=== PATIENT | female | born 1990 | race Caucasian/White ===

== ENCOUNTER 2016-09-19 10:33 | Emergency (ER) | payer MEDICAID ==
[2016-09-19] MEDS ORDERED: ALBUTEROL SULFATE 0.083% NEB 2.5 MG/3 ML AMPUL NEB ONE (10:54)
--- NOTE | 2016-09-19 10:55 | ER Document Report ---
ED Medical Screen (RME) - General Stated Complaint: COUGH Notes: Patient complains of cough and congestion for 1 week. Fever for 1 day, which was last Sunday. Patient is 14 weeks , denies abdominal pain, no vaginal bleeding. Patient has history of exercise-induced asthma.. I have greeted and performed a rapid initial assessment of this patient. A comprehensive ED assessment and evaluation of the patient, analysis of test results and completion of the medical decision making process will be conducted by additional ED providers. TRAVEL OUTSIDE OF THE [place] IN LAST 30 DAYS: No - Related Data Allergies/Adverse Reactions: amoxicillin [Amoxicillin] Allergy (Unknown, Verified 09/19/16 10:51) Hives Penicillins Allergy (Verified 09/19/16 10:51) Hives Past Medical History - Past Medical History Cardiac Medical History: Denies: Hx Coronary Artery Disease, Hx Heart Attack, Hx Hypertension Pulmonary Medical History: Reports: Hx Asthma Denies: Hx Bronchitis, Hx COPD, Hx Pneumonia Neurological Medical History: Denies: Hx Cerebrovascular Accident, Hx Seizures Renal/ Medical History: Reports: Hx Kidney Stones GI Medical History: Reports: Hx Gastroesophageal Reflux Disease Musculoskeltal Medical History: Denies Hx Arthritis, Reports Hx Musculoskeletal Deformity Psychiatric Medical History: Reports: Hx Attention Deficit Hyperactivity Disorder, Hx Bipolar Disorder, Hx Depression Past Surgical History: Reports: Hx Adenoidectomy, Hx Gynecologic Surgery, Hx Oral Surgery - wisdom teeth, Hx Tonsillectomy. Denies: Hx Hysterectomy, Hx Pacemaker - Immunizations Immunizations up to date: Yes Hx Diphtheria, Pertussis, Tetanus Vaccination: Yes - unknown Physical Exam - Vital signs Vitals: Temp Pulse Resp BP Pulse Ox 98.6 F 109 H 24 H 111/67 98 09/19/16 10:48 09/19/16 10:48 09/19/16 10:48 09/19/16 10:48 09/19/16 10:48 - Respiratory Notes: Patient was almost constant hacking cough in triage. Decreased air movement with expiratory wheezes on auscultation. Course - Vital Signs Vital signs: Temp Pulse Resp BP Pulse Ox 98.6 F 109 H 24 H 111/67 98 09/19/16 10:48 09/19/16 10:48 09/19/16 10:48 09/19/16 10:48 09/19/16 10:48
[2016-09-19] MEDS ORDERED: PREDNISONE 20 MG TABLET PO ONE (15:29)
[2016-09-19] MEDS ORDERED: ALBUTEROL SULFATE 0.083% NEB 2.5 MG/3 ML AMPUL NEB SCH (15:30)
--- NOTE | 2016-09-19 15:35 | ER Document Report ---
ED Respiratory Problem - General Chief Complaint: Cough Stated Complaint: COUGH Time seen by provider: 15:30 Mode of Arrival: Ambulatory Information source: Patient Notes: 26-year-old female presenting to ED for cough congestion cold symptoms with a wheezes shortness of breath. She is 14 weeks . States she had a history of asthma as a child but it's not been having any problems with it until recently. TRAVEL OUTSIDE OF THE [place] IN LAST 30 DAYS: No - HPI Patient complains to provider of: Asthma, Cough Onset: Yesterday Duration: Continuous Initiating Event: URI Quality of pain: Achy Severity: Moderate Pain Level: 3 Context: Hx asthma Cough: Nonproductive Sputum amount: None Associated symptoms: Cough, Fever, PND, Runny nose, Short of breath, Wheezing, Other - Similar symptoms previously: Yes Recently seen / treated by doctor: Yes - Related Data Allergies/Adverse Reactions: amoxicillin [Amoxicillin] Allergy (Unknown, Verified 09/19/16 10:51) Hives Penicillins Allergy (Verified 09/19/16 10:51) Hives Past Medical History - General Information source: Patient - Social History Smoking Status: Former Smoker Cigarette use (# per day): No Chew tobacco use (# tins/day): No Smoking Education Provided: No Frequency of alcohol use: None Drug Abuse: None Family History: Reviewed & Not Pertinent Patient has suicidal ideation: No Patient has homicidal ideation: No - Past Medical History Cardiac Medical History: Reports: None Pulmonary Medical History: Reports: Hx Asthma, Hx Pneumonia EENT Medical History: Reports: None Neurological Medical History: Reports: None Endocrine Medical History: Reports: None Renal/ Medical History: Reports: Hx Kidney Stones Malignancy Medical History: Reports: None GI Medical History: Reports: Hx Gastroesophageal Reflux Disease Musculoskeltal Medical History: Reports Hx Musculoskeletal Deformity Skin Medical History: Reports None Psychiatric Medical History: Reports: Hx Attention Deficit Hyperactivity Disorder, Hx Bipolar Disorder, Hx Depression Traumatic Medical History: Reports: Hx Fractures - Wrist Infectious Medical History: Reports: None Past Surgical History: Reports: Hx Adenoidectomy, Hx Gynecologic Surgery, Hx Oral Surgery - wisdom teeth, Hx Tonsillectomy - Immunizations Immunizations up to date: Yes Hx Diphtheria, Pertussis, Tetanus Vaccination: Yes - unknown Review of Systems - Review of Systems Constitutional: Fever, Recent illness EENT: Nose discharge, Sinus discharge Cardiovascular: No symptoms reported Respiratory: Cough, Wheezing Gastrointestinal: No symptoms reported Genitourinary: No symptoms reported Female Genitourinary: No symptoms reported Musculoskeletal: No symptoms reported Skin: No symptoms reported Hematologic/Lymphatic: No symptoms reported Neurological/Psychological: No symptoms reported -: Yes All other systems reviewed and negative Physical Exam - Vital signs Vitals: Temp Pulse Resp BP Pulse Ox 98.6 F 109 H 24 H 111/67 98 09/19/16 10:48 09/19/16 10:48 09/19/16 10:48 09/19/16 10:48 09/19/16 10:48 Interpretation: Normal - General General appearance: Appears well, Alert - HEENT Head: Normocephalic, Atraumatic Eyes: Normal Pupils: PERRL Ears: Normal External canal: Normal Tympanic membrane: Normal Sinus: Normal Nasal: Purulent discharge, Swelling Mouth/Lips: Normal Mucous membranes: Normal Pharynx: Post nasal drainage Neck: Normal - Respiratory Respiratory status: No respiratory distress Chest status: Nontender Breath sounds: Nonproductive cough, Wheezing Chest palpation: Normal - Cardiovascular Rhythm: Regular Heart sounds: Normal auscultation Murmur: No - Abdominal Inspection: Normal Distension: No distension Bowel sounds: Normal Tenderness: Nontender Organomegaly: No organomegaly - Back Back: Normal, Nontender - Extremities General upper extremity: Normal inspection, Nontender, Normal color, Normal ROM , Normal temperature General lower extremity: Normal inspection, Nontender, Normal color, Normal ROM , Normal temperature, Normal weight bearing. No: Ping's sign - Neurological Neuro grossly intact: Yes Cognition: Normal Orientation: AAOx4 Helene Coma Scale Eye Opening: Spontaneous Helene Coma Scale Verbal: Oriented Helene Coma Scale Motor: Obeys Commands Helene Coma Scale Total: 15 Speech: Normal Motor strength normal: LUE, RUE, LLE, RLE Sensory: Normal - Psychological Associated symptoms: Normal affect, Normal mood - Skin Skin Temperature: Warm Skin Moisture: Dry Skin Color: Normal Course - Re-evaluation Re-evalutation: 09/19/16 19:37 Lungs were clear after her albuterol treatments and her prednisone patient was discharged home with prescription for albuterol inhaler and prednisone - Vital Signs Vital signs: Temp Pulse Resp BP Pulse Ox 98.6 F 109 H 24 H 111/67 98 09/19/16 10:48 09/19/16 10:48 09/19/16 10:48 09/19/16 10:48 09/19/16 10:48 - Diagnostic Test Radiology reviewed: Image reviewed, Reports reviewed Discharge - Discharge Clinical Impression: URI (upper respiratory infection) Qualifiers: URI type: unspecified URI Qualified Code(s): J06.9 - Acute upper respiratory infection, unspecified Condition: Stable Disposition: HOME, SELF-CARE Additional Instructions: UPPER RESPIRATORY ILLNESS: You have a viral infection of the respiratory passages -- a "cold." This common infection causes nasal congestion, drainage, and often sore throat and cough. It is highly contagious. The disease usually lasts about 10 to 14 days. There is no "cure" for the viral infection -- it must run its course. If there is a complication, such as bacterial infection in the nose, sinuses, middle ear, or bronchial tubes, antibiotics may be required. The antibiotics won't affect the virus. Drink plenty of fluids. A humidifier may help. An expectorant medication or decongestant may make you more comfortable. Use acetaminophen or ibuprofen for fever or aches. See the doctor if fever persists over two days, if there is any significant worsening of your symptoms, or if you simply fail to improve as expected. BRONCHOSPASM: You have tightness in the bronchial tubes, called bronchospasm. This often occurs with bronchial infections. Allergies, inhaled chemicals, and polluted or cold air can also provoke bronchospasm. It's more likely in patients with asthma in the family. Emergency treatment of bronchospasm may include adrenaline shots or bronchodilator aerosol. You may feel lightheaded and have a rapid pulse for an hour or two. Rest and get plenty of fluids. At home, we'll treat you with a bronchodilator inhaler. Antibiotics and corticosteroids may be required for some patients. Until you recover, avoid chemical fumes, dusts, pollens, and exercising in very cold or dry air. If you smoke, stop now!! If you develop a fever, increased wheezing, chest pain, or severe shortness of breath, you should contact the doctor immediately. DECONGESTANT MEDICATION: A decongestant medicine has been prescribed. Often this medicine is combined in the same tablet with an antihistamine or expectorant. This type of medicine is helpful in treating a bad cold or sinus condition, as well as in treatment of the nasal congestion of hay fever. It is not of much benefit for lung infections. Decongestant medicines are related to stimulants. They can cause an increase in blood pressure and heart rate. Persons with heart disease and high blood pressure should not take decongestants without discussing this with the physician. If you develop palpitations, chest pain, headache, or tremors, stop the medicine and consult your physician. COUGH-SUPPRESSANT & EXPECTORANT MEDICATION: You are to use a cough medication as needed for relief of symptoms. This medicine is a combination of an expectorant (to make the mucous thinner and more easily "coughed up") and a cough suppressant (to reduce the frequency of coughing). The cough-suppressant medicine is related to narcotics. You may experience mild nausea and sleepiness. Some patients who are very sensitive to narcotics may have stomach pain from this medicine. Taking the medicine with food reduces these side effects. Do not drive or work with machinery until you know how this medicine affects you. The expectorant should have no side effects. Iodine-containing expectorants (such as organidin) should not be taken by persons with active thyroid disease unless approved by your doctor. Call the doctor if you develop shortness of breath, hives, rash, itching, lightheadedness, or severe nausea and vomiting. INHALED BRONCHODILATORS: You have received a treatment of and/or prescription for an inhaled bronchodilator -- a medication which stimulates the airways in the lung to dilate. This improves the flow of air in asthma, bronchitis, and emphysema. These medicines have some similarity to adrenaline, and can cause similar side effects: shakiness, racing heart, and a sense of nervousness. These side effects decrease with time. Contact your doctor if these side effects are severe. Do not over-use the medicine. Too-frequent use of the inhaler may make it ineffective. Call your doctor if the inhaler is not controlling your symptoms at the prescribed doses. STEROID MEDICATION: You have been given an injection of or oral medicine of the cortisone/ steroid class. This medication is used to control inflammation or allergy. Rg t is usually only given for a short period of time, until the acute process subsides. There are usually no side effects from short-term use of cortisone-like medications. Some persons feel an increased sense of well-being and are not sleepy at bedtime. Long-term use of cortisone medications is best avoided, unless required for a severe condition. If your condition does not remit, or relapses after the course of corticosteroid medication, you should consult your physician. USE OF ACETAMINOPHEN (Tylenol): Acetaminophen may be taken for pain relief or fever control. It's much safer than aspirin, offering a wider range of "safe" dosages. It is safe during . Some brand names are Tylenol, Panadol, Datril, Anacin 3, Tempra, and Liquiprin. Acetaminophen can be repeated every four hours. The following are maximum recommended dosages: >89 pounds or adults 650 mg to 900 mg Acetaminophen can be repeated every four hours. Maximum dose not to exceed 4000 mg a day. FOLLOW-UP CARE: If you have been referred to a physician for follow-up care, call the physician s office for an appointment as you were instructed or within the next two days. If you experience worsening or a significant change in your symptoms, notify the physician immediately or return to the Emergency Department at any time for re-evaluation. Prescriptions: Albuterol Sulfate [Proair HFA Inhalation Aerosol 8.5 gm MDI] 2 puff IH Q4H PRN # 1 mdi PRN Reason: Prednisone [Deltasone 20 mg Tablet] 2 tab PO DAILY 3 Days Referrals: ANTOINE WISE MD [Primary Care Provider] - Follow up in 3-5 days
[2016-09-19 17:59] VITALS: BP 133/72
== END 2016-09-19 17:51 | disposition home or self-care (01) ==
LOC: ER 10:33
DX: J06.9 Acute upper respiratory infection, unspecified (principal); R05 Cough; R06.02 Shortness of breath; Z87.891 Personal history of nicotine dependence
CPT/HCPCS: 94640 ×2; 99283; 71020; J7512

== ENCOUNTER 2016-11-26 13:08 | Emergency (ER) | payer MEDICAID ==
[2016-11-26] MEDS ORDERED: ACETAMINOPHEN 325 MG TABLET PO ONE (13:53)
--- NOTE | 2016-11-26 13:54 | ER Document Report ---
HPI - HPI Patient complains to provider of: Left ankle injury Onset: Yesterday Onset/Duration: Sudden Quality of pain: Sharp Pain Level: 5 Context: Pt states that she was stepping up on a deck in her left foot slipped on wet grass. Patient states that she rolled her left ankle injuring her left foot and ankle. Patient complains of pain with weightbearing. Associated Symptoms: Other - Left foot and ankle pain Exacerbated by: Standing, Movement, Walking Relieved by: Denies Similar symptoms previously: No Recently seen / treated by doctor: No - ROS ROS below otherwise negative: Yes Systems Reviewed and Negative: Yes All other systems reviewed and negative - NEURO Neurology: DENIES: Weakness - REPRODUCTIVE Reproductive: REPORTS: : - MUSCULOSKELETAL Musculoskeletal: REPORTS: Extremity pain, Swelling - DERM Skin Color: Normal Skin Problems: None Past Medical History - General Information source: Patient - Social History Smoking Status: Never Smoker Frequency of alcohol use: None Drug Abuse: None 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 Denies: Hx Peritoneal Dialysis GI Medical History: Reports: Hx Gastroesophageal Reflux Disease Musculoskeltal Medical History: Denies Hx Arthritis, Reports Hx Musculoskeletal Deformity Psychiatric Medical History: Reports: Hx Attention Deficit Hyperactivity Disorder, Hx Bipolar Disorder, Hx Depression Traumatic Medical History: Reports: Hx Fractures - Wrist Past Surgical History: Reports: Hx Adenoidectomy, Hx Gynecologic Surgery, Hx Oral Surgery - wisdom teeth, Hx Tonsillectomy. Denies: Hx Hysterectomy, Hx Pacemaker - Immunizations Immunizations up to date: Yes Hx Diphtheria, Pertussis, Tetanus Vaccination: Yes - unknown Vertical Provider Document - CONSTITUTIONAL Agree With Documented VS: Yes Exam Limitations: No Limitations General Appearance: Obese - morbidly - INFECTION CONTROL TRAVEL OUTSIDE OF THE [place] IN LAST 30 DAYS: No - HEENT HEENT: Atraumatic, Normocephalic - NECK Neck: Normal Inspection - RESPIRATORY Respiratory: Breath Sounds Normal, No Respiratory Distress O2 Sat by Pulse Oximetry: 97 - CARDIOVASCULAR Cardiovascular: Regular Rate, Regular Rhythm, No Murmur Pulses: Normal: Dorsalis pedis - MUSCULOSKELETAL/EXTREMETIES Musculoskeletal/Extremeties: MAEW, Tender - Anterior ankle tenderness, left ankle tenderness over the lateral malleolar area, left lateral foot tenderness over cuboid bone. Pt with 1+ edema to left foot and ankle, no deformity, Edema. negative: Eccymosis - NEURO Level of Consciousness: Awake, Alert, Appropriate Motor/Sensory: No Motor Deficit - DERM Integumentary: Warm, Dry, No Rash Course - Vital Signs Vital signs: Temp Pulse Resp BP Pulse Ox 98.1 F 86 20 136/86 H 97 11/26/16 13:31 11/26/16 13:31 11/26/16 13:31 11/26/16 13:31 11/26/16 13:31 - Diagnostic Test Radiology reviewed: Image reviewed, Reports reviewed Procedures - Immobilization Left Foot Pre-Proc Neuro Vasc Exam: Normal Immobilizer type: Rafael wrap, Post-op shoe Performed by: PCT Post-Proc Neuro Vasc Exam: Normal Alignment checked and good: Yes Discharge - Discharge Clinical Impression: Left ankle sprain Qualifiers: Encounter type: initial encounter Involved ligament of ankle: unspecified ligament Qualified Code(s): S93.402A - Sprain of unspecified ligament of left ankle, initial encounter Sprain of foot, left Qualifiers: Encounter type: initial encounter Qualified Code(s): S93.602A - Unspecified sprain of left foot, initial encounter Condition: Stable Disposition: HOME, SELF-CARE Instructions: Ice Packs ([facility]), Sprain ([facility]), Sprained Ankle ([facility]), Rafael Wrap ( [facility]), Post-Op Shoe ([facility]), Use of Crutches ([facility]), Acetaminophen Additional Instructions: Return immediately for any new or worsening symptoms Followup with your primary care provider, call tomorrow to make a followup appointment Follow-up with orthopedic doctor for any continued pain or problems Weightbearing as tolerated Forms: Return to Work Referrals: IDRIS DANIELLE MD [Primary Care Provider] - Follow up as needed [facility] [Provider Group] - Follow up as needed
--- NOTE | 2016-11-26 14:43 | RADIOLOGY REPORT (SQ) ---
EXAM DESCRIPTION: ANKLE LEFT COMPLETE COMPLETED DATE/TIME: 11/26/2016 2:12 pm REASON FOR STUDY: rolled ankle, ankle/foot pain COMPARISON: None. NUMBER OF VIEWS: Three views. TECHNIQUE: AP, lateral, and oblique radiographic images acquired of the left ankle. LIMITATIONS: None. FINDINGS: MINERALIZATION: Normal. BONES: No acute fracture or dislocation. No worrisome bone lesions. Small dorsal and plantar calcan eal spurs. JOINTS: No gross ankle joint effusion SOFT TISSUES: Lateral soft tissue swelling. No radiopaque foreign body or soft tissue gas OTHER: No other significant finding. IMPRESSION: Lateral soft tissue swelling without acute fracture or disruption of the ankle mortise TECHNICAL DOCUMENTATION: JOB ID: [id number] [employer]- All Rights Reserved
--- NOTE | 2016-11-26 14:44 | RADIOLOGY REPORT (SQ) ---
EXAM DESCRIPTION: FOOT LEFT COMPLETE COMPLETED DATE/TIME: 11/26/2016 2:12 pm REASON FOR STUDY: rolled ankle, ankle/foot pain COMPARISON: Ankle films same date NUMBER OF VIEWS: Three views. TECHNIQUE: AP, lateral and oblique radiographic images acquired of the left foot. LIMITATIONS: None. FINDINGS: MINERALIZATION: Normal. BONES: No acute fracture or dislocation. No worrisome bone lesions. Small plantar and dorsal calcan eal spurs. JOINTS: No effusions. SOFT TISSUES: Lateral ankle and dorsal midfoot soft tissue swelling. No foreign body. OTHER: No other significant finding. IMPRESSION: Soft tissue swelling. No fracture or malalignment. TECHNICAL DOCUMENTATION: JOB ID: [id number] [facility]- All Rights Reserved
[2016-11-26 15:59] VITALS: BP 130/78
== END 2016-11-26 15:53 | disposition home or self-care (01) ==
LOC: ER 13:08
DX: O9A.219 Injury, poisoning and certain other consequences of external causes complicating pregnancy, unspecified trimester (principal); S93.402A Sprain of unspecified ligament of left ankle, initial encounter; S93.602A Unspecified sprain of left foot, initial encounter; X50.0XXA Overexertion from strenuous movement or load, initial encounter; O99.519 Diseases of the respiratory system complicating pregnancy, unspecified trimester; J45.909 Unspecified asthma, uncomplicated; Z3A.00 Weeks of gestation of pregnancy not specified
CPT/HCPCS: 99283; 73610; 73630; J3490

== ENCOUNTER 2016-12-03 20:28 | Emergency (ER) | payer MEDICAID ==
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
--- NOTE | 2016-12-03 23:14 | RADIOLOGY REPORT (SQ) ---
EXAM DESCRIPTION: FOOT LEFT COMPLETE COMPLETED DATE/TIME: 12/03/2016 10:44 pm REASON FOR STUDY: fall COMPARISON: 11/26/2016 NUMBER OF VIEWS: Three views. TECHNIQUE: AP, lateral and oblique radiographic images acquired of the left foot. LIMITATIONS: None. FINDINGS: MINERALIZATION: Normal. BONES: No acute fracture or dislocation. No worrisome bone lesions. JOINTS: No effusions. SOFT TISSUES: Diffuse soft tissue swelling. No foreign body. OTHER: No other significant finding. IMPRESSION: No fracture identified. TECHNICAL DOCUMENTATION: JOB ID: [id number] [employer]- All Rights Reserved
--- NOTE | 2016-12-03 23:16 | RADIOLOGY REPORT (SQ) ---
EXAM DESCRIPTION: ANKLE LEFT COMPLETE COMPLETED DATE/TIME: 12/03/2016 10:44 pm REASON FOR STUDY: fall COMPARISON: None. NUMBER OF VIEWS: Three views. TECHNIQUE: AP, lateral, and oblique radiographic images acquired of the left ankle. LIMITATIONS: None. FINDINGS: MINERALIZATION: Normal. BONES: No acute fracture or dislocation. No worrisome bone lesions. JOINTS: Small effusion. SOFT TISSUES: Diffuse soft tissue swelling. No foreign body. OTHER: No other significant finding. IMPRESSION: No fracture identified.Small effusion. TECHNICAL DOCUMENTATION: JOB ID: [id number] [employer]- All Rights Reserved
[2016-12-04 04:55] VITALS: BP 129/82
== END 2016-12-04 | disposition home or self-care (01) ==
LOC: ER 20:28
DX: S93.402A Sprain of unspecified ligament of left ankle, initial encounter (principal); S93.609A Unspecified sprain of unspecified foot, initial encounter; X50.1XXA Overexertion from prolonged static or awkward postures, initial encounter; M79.672 Pain in left foot; M25.572 Pain in left ankle and joints of left foot; Z88.0 Allergy status to penicillin; J45.909 Unspecified asthma, uncomplicated
CPT/HCPCS: 99283

== ENCOUNTER → 2017-01-09 | Outpatient (CLI) | payer MEDICAID ==
--- NOTE | 2017-01-09 08:52 | WOMENS IMAGING REPORT ---
EXAM DESCRIPTION: U/S BREAST UNILAT LIMITED COMPLETED DATE/TIME: 01/09/2017 7:42 am REASON FOR STUDY: R22.9 N63 UNSPECIFIED LUMP IN BREAST COMPARISON: None. TECHNIQUE: Real-time and static grayscale imaging performed of the right axilla targeted to the area of clinical concern. Selected color Doppler images recorded. LIMITATIONS: None. FINDINGS: MASS: No mass identified. Normal glandular tissue. OTHER: No other significant finding. IMPRESSION: No suspicious findings detected by ultrasound. BIRAD: 1 Negative. RECOMMENDATION: RECOMMENDED FOLLOW-UP: Follow-up as clinically indicated. COMMENT: The [employer] (ACR) has developed recommendations for screening MRI of the breasts in certain patient populations, to be used in conjunction with mammography. Breast MRI s urveillance may be appropriate for women with more than 20% lifetime risk of developing breast cancer as determined by genetic testing, significant family history of the disease, or history of mantle r adiation for Hodgkins Disease. ACR Practice Guidelines 2008. TECHNICAL DOCUMENTATION: JOB ID: [id number] [employer]- All Rights Reserved
== END ==
LOC: WI 07:10
PROVIDERS: ATTEND Advanced Practice Midwife
DX: N63 Unspecified lump in breast (principal)
CPT/HCPCS: 76642

== ENCOUNTER 2017-03-01 06:37 | Inpatient (IN) | payer MEDICAID ==
[2017-03-01] MEDS ORDERED: RINGERS SOLUTION,LACTATED 1,000 ML IV ONE (06:52)
[2017-03-01] MEDS ORDERED: MAG HYDROX/AL HYDROX/SIMETH SUSP 30 ML UDCUP PO PRN (06:56)
[2017-03-01] MEDS ORDERED: CLINDAMYCIN 900 MG/D5W RTU 50 ML IV ONE ×3 (07:15→23:50)
[2017-03-01 07:44] LABS: ABSOLUTE EOSINOPHILS # (AUTO) 0.1 10^3/uL (0.0-0.6); ABSOLUTE LYMPHOCYTES (AUTO) 1.1 10^3/uL (0.5-4.7); ABSOLUTE MONOCYTES (AUTO) 0.5 10^3/uL (0.1-1.4); ABSOLUTE NEUT (AUTO) 7.1 10^3/uL (1.7-8.2); BASOPHILS % (AUTO) 0.3 % (0-2); EOSINOPHILS % (AUTO) 1.1 % (0-6); HEMATOCRIT 33.5 % (36.0-47.0); HEMOGLOBIN 11.2 g/dL (12.0-15.5); HGB HCT DIFFERENCE 0.1; LYMPHOCYTES % (AUTO) 12.8 % (13-45); MEAN CORPUSCULAR HEMOGLOBIN 27.9 pg (27.0-33.4); MEAN CORPUSCULAR HGB CONC 33.3 g/dL (32.0-36.0); MEAN CORPUSCULAR VOLUME 84 fl (80-97); MONOCYTES % (AUTO) 6.2 % (3-13); RED CELL DISTRIBUTION WIDTH 14.3 % (11.5-14.0); SEGMENTED NEUTROPHILS % (AUTO) 79.6 % (42-78); WHITE BLOOD COUNT 8.9 10^3/uL (4.0-10.5)
[2017-03-01 07:50] LABS: APPEARANCE,URINE SLIGHTLY-CLOUDY; BILIRUBIN,URINE NEGATIVE (NEGATIVE); GLUCOSE, URINE NEGATIVE (NEGATIVE); KETONES,URINE NEGATIVE (NEGATIVE); LEUKOCYTE ESTERASE,URINE SMALL (NEGATIVE); NITRITE,URINE NEGATIVE (NEGATIVE); PROTEIN,URINE NEGATIVE (NEGATIVE); URINE SPECIFIC GRAVITY 1.011; UROBILINOGEN,URINE NEGATIVE mg/dL (<2.0)
[2017-03-01 08:09] LABS: URINE BARBITURATES SCREEN NEGATIVE; URINE METHADONE SCREEN NEGATIVE; URINE OPIATES LOW NEGATIVE; URINE PHENCYCLIDINE SCREEN NEGATIVE
[2017-03-01] MEDS: OXYTOCIN/NORMAL SALINE 20 UNIT/1,000 ML RTUINJ IV PRN ×2 (08:31→23:36)
[2017-03-01] MEDS: CLINDAMYCIN 900 MG/D5W RTU 50 ML IV SCH ×2 (08:38→23:50)
[2017-03-01] MEDS ORDERED: FAMOTIDINE INJ/PF 20 MG/2 ML SDV IV ONE (09:02)
[2017-03-01] MEDS ORDERED: MAG HYDROX/AL HYDROX/SIMETH SUSP 30 ML UDCUP ONE ×2 (09:10→18:29)
[2017-03-01 10:36] LABS: ALANINE AMINOTRANSFERASE 18 U/L (9-52); ALBUMIN 3.3 g/dL (3.5-5.0); ALKALINE PHOSPHATASE 228 U/L (38-126); ANION GAP 11 (5-19); ASPARTATE AMINO TRANSFERASE 14 U/L (14-36); BILIRUBIN,DIRECT 0.4 mg/dL (0.0-0.4); BILIRUBIN,TOTAL 0.6 mg/dL (0.2-1.3); BLOOD UREA NITROGEN 9 mg/dL (7-20); CALCIUM 9.2 mg/dL (8.4-10.2); CARBON DIOXIDE 22 mmol/L (22-30); CHLORIDE 106 mmol/L (98-107); CREATININE RESULT 0.44 mg/dL (0.52-1.25); GLUCOSE 71 mg/dL (75-110); LDH 451 U/L (313-618); POTASSIUM 3.2 mmol/L (3.6-5.0); SODIUM 138.5 mmol/L (137-145); TOTAL PROTEIN 6.4 g/dL (6.3-8.2); URIC ACID 4.5 mg/dL (2.5-6.2)
[2017-03-01] MEDS ORDERED: EPHEDRINE SULFATE INJ 50 MG/1 ML AMPULE ONE (12:25)
[2017-03-01] MEDS ORDERED: FENTANYL/BUPIVACAINE/NS/PF 200 MCG/100 ML RTUINJ EPI ONE (12:25)
[2017-03-01] MEDS ORDERED: BUPIVACAINE HCL 0.25 % INJ/PF (2.5 MG/1 ML) 30 ML VIAL ONE (12:25)
[2017-03-01] MEDS ORDERED: LIDOCAINE 1% INJ-PF (10 MG/ML) 30 ML SDV ONE (12:26)
[2017-03-01] MEDS ORDERED: MISOPROSTOL 0.2 MG TABLET ONE (12:26)
[2017-03-01] MEDS ORDERED: OXYTOCIN/NORMAL SALINE 20 UNIT/1,000 ML RTUINJ ONE (23:23)
[2017-03-01] MEDS ORDERED: CARBOPROST TROMETHAMINE INJ 250 MCG/1 ML AMPULE ONE (23:24)
[2017-03-01] MEDS ORDERED: BENZOCAINE/MENTHOL AEROSOL SPRAY 56 ML TOP PRN (23:38)
[2017-03-01] MEDS ORDERED: ACETAMINOPHEN WITH CODEINE #3 TABLET PO PRN (23:38)
[2017-03-01] MEDS ORDERED: MEASLES,MUMPS&RUBELLA VACC/PF 0.5 ML VIAL SUBCUT PRN (23:38)
[2017-03-01] MEDS ORDERED: OXYTOCIN/NORMAL SALINE 20 UNIT/1,000 ML RTUINJ IV PRN (23:38)
[2017-03-01] MEDS ORDERED: DIBUCAINE 1% OINTMENT 28 GM TP PRN (23:38)
[2017-03-01] MEDS ORDERED: DIPH/PERTUSS(ACELL)/TETANUS VAC/PF 0.5 ML SYR (>=10YO) IM PRN (23:38)
[2017-03-01] MEDS ORDERED: ZOLPIDEM TARTRATE 5 MG TABLET PO PRN (23:38)
[2017-03-01] MEDS ORDERED: OXYCODONE-ACETAMINOPHEN 5-325 MG TABLET PO ONE (23:41)
[2017-03-01] MEDS ORDERED: OXYCODONE-ACETAMINOPHEN 5-325 MG TABLET ONE (23:50)
[2017-03-02] MEDS ORDERED: METHYLERGONOVINE MALEATE INJ/PF 0.2 MG/1 ML AMPULE IM ONE (00:43)
[2017-03-02] MEDS ORDERED: METHYLERGONOVINE MALEATE INJ/PF 0.2 MG/1 ML AMPULE ONE (00:51)
[2017-03-02] MEDS ORDERED: OXYTOCIN/NORMAL SALINE 20 UNIT/1,000 ML RTUINJ ONE (00:57)
[2017-03-02] MEDS: IBUPROFEN 800 MG TABLET PO SCH ×3 (01:30→21:44)
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
[2017-03-02 02:51] LABS: ABSOLUTE BASOPHILS # (AUTO) 0.2 10^3/uL (0.0-0.2); ABSOLUTE LYMPHOCYTES (AUTO) 0.9 10^3/uL (0.5-4.7); ABSOLUTE MONOCYTES (AUTO) 0.5 10^3/uL (0.1-1.4); ABSOLUTE NEUT (AUTO) 11.1 10^3/uL (1.7-8.2); BASOPHILS % (AUTO) 1.5 % (0-2); EOSINOPHILS % (AUTO) 0.4 % (0-6); HEMOGLOBIN 10.7 g/dL (12.0-15.5); HGB HCT DIFFERENCE 0.1; LYMPHOCYTES % (AUTO) 6.8 % (13-45); MEAN CORPUSCULAR HEMOGLOBIN 28.1 pg (27.0-33.4); MEAN CORPUSCULAR HGB CONC 33.6 g/dL (32.0-36.0); MEAN CORPUSCULAR VOLUME 84 fl (80-97); MONOCYTES % (AUTO) 4.3 % (3-13); RED BLOOD COUNT 3.81 10^6/uL (3.72-5.28); RED CELL DISTRIBUTION WIDTH 14.5 % (11.5-14.0); WHITE BLOOD COUNT 12.8 10^3/uL (4.0-10.5)
[2017-03-02] MEDS: ACETAMINOPHEN WITH CODEINE #3 TABLET PO PRN ×4 (05:15→21:45)
[2017-03-02 07:52] LABS: HEMATOCRIT 30.4 % (36.0-47.0); HEMOGLOBIN 10.6 g/dL (12.0-15.5); HGB HCT DIFFERENCE 1.4; MEAN CORPUSCULAR HEMOGLOBIN 29.1 pg (27.0-33.4); MEAN CORPUSCULAR HGB CONC 34.8 g/dL (32.0-36.0); MEAN CORPUSCULAR VOLUME 84 fl (80-97); RED BLOOD COUNT 3.64 10^6/uL (3.72-5.28); RED CELL DISTRIBUTION WIDTH 14.4 % (11.5-14.0); WHITE BLOOD COUNT 10.1 10^3/uL (4.0-10.5)
[2017-03-02] MEDS ORDERED: ACETAMINOPHEN WITH CODEINE #3 TABLET PO ONE (08:00)
[2017-03-02] MEDS: DOCUSATE SODIUM 100 MG CAPSULE PO SCH ×2 (09:10→17:10)
[2017-03-02] MEDS: FERROUS SULFATE 325 MG TABLET PO SCH ×2 (09:10→17:10)
[2017-03-02] MEDS: PRENATAL VITAMIN W-O CA NO5/FE FUMARATE/FA CAPSULE PO SCH (09:10)
[2017-03-02] MEDS: SENNOSIDES/DOCUSATE 8.6-50 MG 1 EACH TABLET PO SCH (09:11)
--- NOTE | 2017-03-02 09:41 | PDOC PROGRESS REPORT ---
Subjective-OB Subjective: Post Delivery Day: 26 year old. Denies any needs at this time Physical Exam (OB) Vital Signs: Temp Pulse Resp BP Pulse Ox 97.8 F 64 16 140/93 H 100 03/02/17 07:40 03/02/17 07:40 03/02/17 07:40 03/02/17 07:40 03/02/17 07:40 Intake & Output 03/01/17 03/02/17 03/03/17 06:59 06:59 06:59 Weight 166.8 kg - Lochia Lochia Amount: Small 10-25 ml - Abdomen Description: Soft, Round Bowel Sounds: Normoactive Flatus Presence: Present Stool: No Fundal Description: Firm, Midline Objective-Diagnostic Laboratory: 03/02/17 07:06 03/01/17 10:02 03/01/17 03/01/17 03/02/17 10:02 11:14 02:04 WBC 12.8 H RBC 3.81 Hgb 10.7 L Hct 32.0 L MCV 84 MCH 28.1 MCHC 33.6 RDW 14.5 H Plt Count 90 L 94 L Seg Neutrophils % 87.0 H Lymphocytes % 6.8 L Monocytes % 4.3 Eosinophils % 0.4 Basophils % 1.5 Absolute Neutrophils 11.1 H Absolute Lymphocytes 0.9 Absolute Monocytes 0.5 Absolute Eosinophils 0.0 Absolute Basophils 0.2 Sodium 138.5 Potassium 3.2 L Chloride 106 Carbon Dioxide 22 Anion Gap 11 BUN 9 Creatinine 0.44 L Est GFR ( Amer) > 60 Est GFR (Non-Af Amer) > 60 Glucose 71 L Uric Acid 4.5 Calcium 9.2 Total Bilirubin 0.6 AST 14 ALT 18 Alkaline Phosphatase 228 H Total Protein 6.4 Albumin 3.3 L 03/02/17 07:06 WBC 10.1 RBC 3.64 L Hgb 10.6 L Hct 30.4 L MCV 84 MCH 29.1 MCHC 34.8 RDW 14.4 H Plt Count 101 L Seg Neutrophils % Lymphocytes % Monocytes % Eosinophils % Basophils % Absolute Neutrophils Absolute Lymphocytes Absolute Monocytes Absolute Eosinophils Absolute Basophils Sodium Potassium Chloride Carbon Dioxide Anion Gap BUN Creatinine Est GFR ( Amer) Est GFR (Non-Af Amer) Glucose Uric Acid Calcium Total Bilirubin AST ALT Alkaline Phosphatase Total Protein Albumin
--- NOTE | 2017-03-02 13:52 | Delivery Summary ---
Del Sum A-C Datetime Report Generated by CPN: 03/02/2017 13:52 DELIVERY PERSONNEL DELIVERY PERSONNEL: [id number] Delivery Doctor:: Lisa Galaviz CNM Labor and Delivery Nurse:: Iram Carranza RNhand marker Nurse:: Gail Alejandro RN Supply Chain Manager/CHIEF PORT DIRECTOR: aCrolina Pham CNA Additional Personnel: : Michelle Machado RN MATERNAL INFORMATION Delivery Anesthesia: Epidural Medications After Delivery: Pitocin Drip 20 Units/1000ml NSS Meds After Delivery Comment: Cytotec 1000 mcg NM Estimated Blood Loss (ml): 476 Maternal Complications: None Provider Comments: of viable male infant, over intact perineum, head, shoulders, and body delivered with ease, infant with spontaneous cry and respirations to maternal abodmen, cord clamped X2, infant cut free by pts significant other, infant skin to skin with him. Heavier bleeding while waiting for placetna to deliver, manual removal of placetenta, accessory lobe noted, hemostasis after placenta removal, vagina and perineum inspected, no lacerations noted, mother and in stable condition. LABOR SUMMARY EDC: 03/13/2017 00:00 No. Babies in Womb: 1 Attempted: No Labor Anesthesia: Epidural LABOR INFORMATION Reason for Induction: Gestational Hypertension Onset of Labor: 03/01/2017 08:30 Complete Dilatation: 03/01/2017 23:08 Oxytocin: Induction Group B Beta Strep: positive Antibiotics Time of Last Dose: Name of Antibiotic Given: Clindamycin Steroids Given: None Reason Steroids Not Administered: Not Applicable MEMBRANES Membranes Rupture Method: Artificial Rupture of Membranes: 03/01/2017 12:15 Length of Rupture (hr): 10.97 Amniotic Fluid Color: Clear Amniotic Fluid Amount: Moderate STAGES OF LABOR Stage 1 hr: 14 Stage 1 min: 38 Stage 2 hr: 0 Stage 2 min: 5 Stage 3 hr: 0 Stage 3 min: 10 Total Time in Labor hr: 14 Total Time in Labor min: 53 VAGINAL DELIVERY Episiotomy: None Laceration Extension: N/A Laceration Type: None Laceration Repair: Not Applicable Laceration Repair Note: n/a Sponge Count Correct: N/A Sharps Count Correct: N/A CSECTION DELIVERY Primary Indication: N/A Secondary Indication: N/A CSection Incidence: N/A Labor: N/A Elective: N/A CSection Incision: N/A BABY A INFORMATION Infant Delivery Date/Time: 03/01/2017 23:13 Method of Delivery: Vaginal Method of Delivery: Vaginal Born in Route : No : N/A Forceps: N/A Vacuum Extraction: N/A Shoulder Dystocia : No PRESENTATION/POSITION BABY A Presentation: Cephalic Cephalic Presentation: Vertex Vertex Position: Left Occipital Anterior Breech Presentation: N/A PLACENTA INFORMATION BABY A Placenta Delivery Time : 03/01/2017 23:23 Placenta Method of Delivery: Spontaneous Placenta Method of Delivery: Spontaneous Placenta Status: Delivered SCORES BABY A Heart Rate 1 min: >100 bpm Resp Effort 1 min: Good Cry Reflex Irritability 1 min: Cough or Sneeze or Pulls Away Muscle Tone 1 min: Active Motion Color 1 min: Body [place], Extremities Blue Resuscitation Effort 1 min: Tactile Stimulation SCORE 1 MIN: 9 Heart Rate 5 min: >100 bpm Resp Effort 5 min: Good Cry Reflex Irritability 5 min: Cough or Sneeze or Pulls Away Muscle Tone 5 min: Active Motion Color 5 min: Body [place], Extremities Blue SCORE 5 MIN: 9 INFORMATION BABY A Gestational Age at Delivery: 38.2 Gestational Status: Early Term- 37- 38.6 Weeks Outcome : Liveborn Infant Condition : Stable Sex: Male Sex: Male IDENTIFICATION BABY A Verification Date/Time: 03/02/2017 00:33 ID Band Number: [id number] Mother's Name Verified: Yes RN Verifying Infant: K Jeannette RN/ B [place] RN WEIGHT/LENGTH BABY A Birthweight (gm): 3440 Weight (lb): 7 Weight (oz): 9 Infant Length (in): 19.50 Infant Length (cm): 49.53 CORD INFORMATION BABY A No. 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
[2017-03-03] MEDS: ACETAMINOPHEN WITH CODEINE #3 TABLET PO PRN ×4 (03:43→16:18)
[2017-03-03] MEDS: IBUPROFEN 800 MG TABLET PO SCH ×2 (05:44→13:37)
[2017-03-03 08:23] VITALS: BP 130/80
[2017-03-03] MEDS: DOCUSATE SODIUM 100 MG CAPSULE PO SCH ×2 (09:48→18:05)
[2017-03-03] MEDS: FERROUS SULFATE 325 MG TABLET PO SCH ×2 (09:48→18:05)
[2017-03-03] MEDS: SENNOSIDES/DOCUSATE 8.6-50 MG 1 EACH TABLET PO SCH (09:48)
[2017-03-03] MEDS: PRENATAL VITAMIN W-O CA NO5/FE FUMARATE/FA CAPSULE PO SCH (09:48)
[2017-03-03] MEDS ORDERED: MEDROXYPROGESTERONE ACET INJ 150 MG/1 ML VIAL IM ONE (12:30)
--- NOTE | 2017-03-03 14:23 | PDOC PROGRESS REPORT ---
Subjective-OB Subjective: Post Delivery Day: 26 year old. Denies any needs at this time. Ready for discharge. Physical Exam (OB) Vital Signs: Temp Pulse Resp BP Pulse Ox 98.1 F 58 L 16 130/80 H 100 03/03/17 08:00 03/03/17 08:00 03/03/17 08:00 03/03/17 08:00 03/03/17 08:00 Intake & Output 03/02/17 03/03/17 03/04/17 06:59 06:59 06:59 Intake Total 250 350 Output Total 300 Balance -50 350 Weight 166.8 kg - PIH/Pre-Eclampsia DTR's: 2 + Clonus: Negative Headache: Absent Epigastric Pain: No Visual Changes: No - Lochia Lochia Amount: Small 10-25 ml Lochia Color: Rubra/Red - Abdomen Description: Soft, Round Hernia Present: No Bowel Sounds: Normoactive Flatus Presence: Present Stool: No Fundal Description: Firm, Midline Fundal Height: u/u - u/2 Objective-Diagnostic Laboratory: 03/02/17 07:06 03/01/17 10:02
--- NOTE | 2017-03-03 14:29 | PDOC DISCHARGE SUMMARY ---
Final Diagnosis Discharge Date: 03/03/17 - Final Diagnosis (1) Bipolar 1 disorder Is this a current diagnosis for this admission?: Yes (2) Depression with anxiety Is this a current diagnosis for this admission?: Yes (3) Morbid obesity Is this a current diagnosis for this admission?: Yes (4) Positive GBS test Is this a current diagnosis for this admission?: Yes (5) Is this a current diagnosis for this admission?: Yes Discharge Data - Discharge Medication Home Medications: Vit/Iron Fumarate/FA [ Tablet] 1 tab PO DAILY 01/21/16 Ranitidine HCl [Zantac 150 mg Tablet] 150 mg PO BID 03/01/17 Reason(s) for Admission: Induction of Labor, PIH Procedures: Ultrasound Intrapartum Procedure(s): Spontaneous Vaginal Delivery - Data Baby 1 Male at 1 minute: 9 at 5 minutes: 9 Weight: 3.43 kg Home with Mother: No Complications: Yes - Elevated bilirubin level - Diagnosis Test Laboratory: Temp Pulse Resp BP Pulse Ox 98.1 F 58 L 16 130/80 H 100 03/03/17 08:00 03/03/17 08:00 03/03/17 08:00 03/03/17 08:00 03/03/17 08:00 03/01/17 03/01/17 03/02/17 06:50 07:04 02:04 RBC 4.00 3.81 Hgb 11.2 L 10.7 L Hct 33.5 L 32.0 L Urine Opiates Screen NEGATIVE 03/02/17 07:06 RBC 3.64 L Hgb 10.6 L Hct 30.4 L Urine Opiates Screen - Discharge information/Instructions Discharge Activity: Activity As Tolerated, Balance Activity w/Rest, Pelvic Rest , Slowly Increase Activity, No tub bath Discharge Diet: Regular Disposition: HOME, SELF-CARE Follow up with: [facility] in: 4, Weeks
== END 2017-03-03 18:09 | disposition home or self-care (01) | DRG 775 ==
LOC: LR 06:37 → 2S 03-02 02:06
PROVIDERS: ADMIT Obstetrics & Gynecology; ATTEND Obstetrics & Gynecology
PROC: 10E0XZZ Delivery of Products of Conception, External Approach (ICD-10-PCS; principal; 2017-03-01)
PROC: 10907ZC Drainage of Amniotic Fluid, Therapeutic from Products of Conception, Via Natural or Artificial Opening (ICD-10-PCS; 2017-03-01)
PROC: 4A1HXCZ Monitoring of Products of Conception, Cardiac Rate, External Approach (ICD-10-PCS; 2017-03-01)
DX: O13.4 Gestational [pregnancy-induced] hypertension without significant proteinuria, complicating childbirth (principal); Z68.44 Body mass index [BMI] 60.0-69.9, adult; O99.824 Streptococcus B carrier state complicating childbirth; O99.344 Other mental disorders complicating childbirth; E66.01 Morbid (severe) obesity due to excess calories; F31.9 Bipolar disorder, unspecified; F41.8 Other specified anxiety disorders; O99.52 Diseases of the respiratory system complicating childbirth; J45.909 Unspecified asthma, uncomplicated; F90.9 Attention-deficit hyperactivity disorder, unspecified type; Z87.891 Personal history of nicotine dependence; Z88.0 Allergy status to penicillin; Z3A.38 38 weeks gestation of pregnancy; Z37.0 Single live birth
CPT/HCPCS: 36415; 80053; 80307; 81005; 83615; 84550; 85025; 85027; 85049; 86592; 86850; 86900; 86901; 88307; J1050; J2210; J2590; J3490

== ENCOUNTER 2018-02-19 17:00 | Emergency (ER) | payer MEDICAID ==
[2018-02-19 18:38] LABS: ABSOLUTE EOSINOPHILS # (AUTO) 0.1 10^3/uL (0.0-0.6); ABSOLUTE LYMPHOCYTES (AUTO) 1.7 10^3/uL (0.5-4.7); ABSOLUTE MONOCYTES (AUTO) 0.5 10^3/uL (0.1-1.4); ABSOLUTE NEUT (AUTO) 6.2 10^3/uL (1.7-8.2); BASOPHILS % (AUTO) 0.5 % (0-2); EOSINOPHILS % (AUTO) 1.6 % (0-6); HEMATOCRIT 41.1 % (36.0-47.0); HEMOGLOBIN 13.8 g/dL (12.0-15.5); LYMPHOCYTES % (AUTO) 20.1 % (13-45); MEAN CORPUSCULAR HEMOGLOBIN 25.5 pg (27.0-33.4); MEAN CORPUSCULAR HGB CONC 33.5 g/dL (32.0-36.0); MEAN CORPUSCULAR VOLUME 76 fl (80-97); MONOCYTES % (AUTO) 6.1 % (3-13); PLATELET COUNT 155 10^3/uL (150-450); RED CELL DISTRIBUTION WIDTH 16.5 % (11.5-14.0); SEGMENTED NEUTROPHILS % (AUTO) 71.7 % (42-78); TOTAL CELLS COUNTED % (AUTO) 100 %; WHITE BLOOD COUNT 8.6 10^3/uL (4.0-10.5)
[2018-02-19 18:41] LABS: APPEARANCE,URINE SLIGHTLY-CLOUDY; BILIRUBIN,URINE NEGATIVE (NEGATIVE); COLOR,URINE YELLOW; GLUCOSE, URINE NEGATIVE (NEGATIVE); KETONES,URINE NEGATIVE (NEGATIVE); LEUKOCYTE ESTERASE,URINE LARGE (NEGATIVE); NITRITE,URINE NEGATIVE (NEGATIVE); PROTEIN,URINE NEGATIVE (NEGATIVE); URINE SPECIFIC GRAVITY 1.023
[2018-02-19 18:55] LABS: ALANINE AMINOTRANSFERASE 36 U/L (9-52); ALBUMIN 4.5 g/dL (3.5-5.0); ALKALINE PHOSPHATASE 117 U/L (38-126); ANION GAP 12 (5-19); ASPARTATE AMINO TRANSFERASE 32 U/L (14-36); BILIRUBIN,DIRECT 0.3 mg/dL (0.0-0.4); BILIRUBIN,TOTAL 0.6 mg/dL (0.2-1.3); BLOOD UREA NITROGEN 9 mg/dL (7-20); CALCIUM 9.5 mg/dL (8.4-10.2); CARBON DIOXIDE 23 mmol/L (22-30); CHLORIDE 107 mmol/L (98-107); GLUCOSE 97 mg/dL (75-110); POTASSIUM 3.9 mmol/L (3.6-5.0); SODIUM 142.4 mmol/L (137-145); TOTAL PROTEIN 7.7 g/dL (6.3-8.2)
[2018-02-19 19:03] LABS: BACTERIA (WET MOUNT) 3+ BACTERIA SEEN; EPITHELIALS (WET MOUNT) 3+ EPITHELIALS SEEN; T.VAGINALIS (WET MOUNT) NO TRICHOMONAS SEEN; WBCS (WET MOUNT) 1+ WBCS SEEN; YEAST (WET MOUNT) NO YEAST SEEN
--- NOTE | 2018-02-19 19:54 | ER Document Report ---
ED GI/ - General Chief Complaint: Abdominal Pain Stated Complaint: ABDOMINAL/BACK PAIN Time Seen by Provider: 02/19/18 18:10 Mode of Arrival: Ambulatory Information source: Patient Notes: Patient is a 27-year-old female who presents with chief complaint of low abdominal pain, low back pain, dysuria, abnormal vaginal discharge and irritation on the outside of the vagina. Patient reports she has had a new sexual partner lately and is concerned for STDs. Patient denies any fevers, nausea, vomiting or diarrhea. TRAVEL OUTSIDE OF THE [place] IN LAST 30 DAYS: No - Related Data Allergies/Adverse Reactions: amoxicillin [Amoxicillin] Allergy (Unknown, Verified 09/19/17 16:12) Hives Penicillins Allergy (Verified 09/19/17 16:12) Hives Past Medical History - Social History Smoking Status: Current Some Day Smoker Chew tobacco use (# tins/day): No Frequency of alcohol use: Occasional Drug Abuse: None Family History: Reviewed & Not Pertinent Patient has suicidal ideation: No Patient has homicidal ideation: No - Past Medical History Cardiac Medical History: Denies: Hx Coronary Artery Disease, Hx Heart Attack, Hx Hypertension Pulmonary Medical History: Reports: Hx Asthma Denies: Hx Bronchitis, Hx COPD, Hx Pneumonia Neurological Medical History: Denies: Hx Cerebrovascular Accident, Hx Seizures Renal/ Medical History: Reports: Hx Kidney Stones. Denies: Hx Peritoneal Dialysis GI Medical History: Reports: Hx Gastroesophageal Reflux Disease Musculoskeletal Medical History: Denies Hx Arthritis, Reports Hx Musculoskeletal Deformity Psychiatric Medical History: Reports: Hx Attention Deficit Hyperactivity Disorder, Hx Bipolar Disorder, Hx Depression Traumatic Medical History: Reports: Hx Fractures - Wrist Past Surgical History: Reports: Hx Adenoidectomy, Hx Gynecologic Surgery, Hx Oral Surgery - wisdom teeth, Hx Tonsillectomy. Denies: Hx Hysterectomy, Hx Pacemaker - Immunizations Immunizations up to date: Yes Hx Diphtheria, Pertussis, Tetanus Vaccination: Yes - unknown Physical Exam - Vital signs Vitals: Temp Pulse Resp BP Pulse Ox 99.0 F 86 14 148/95 H 98 02/19/18 17:13 02/19/18 17:13 02/19/18 17:13 02/19/18 17:13 02/19/18 17:13 - Notes Notes: PHYSICAL EXAMINATION: GENERAL: Well-appearing, well-nourished and in no acute distress. HEAD: Atraumatic, normocephalic. EYES: Pupils equal round and reactive to light, extraocular movements intact, conjunctiva are normal. ENT: Nares patent, oropharynx clear without exudates. Moist mucous membranes. NECK: Normal range of motion, supple without lymphadenopathy LUNGS: Breath sounds clear to auscultation bilaterally and equal. No wheezes rales or rhonchi. HEART: Regular rate and rhythm without murmurs ABDOMEN: Soft, nontender, nondistended abdomen. No guarding, no rebound. No masses appreciated. Female : No CVA tenderness on palpation. Vaginal speculum exam reveals thick white malodorous vaginal discharge. No cervical motion tenderness, no adnexal tenderness. Musculoskeletal: Normal range of motion, no pitting or edema. No cyanosis. NEUROLOGICAL: Cranial nerves grossly intact. Normal speech, normal gait. Normal sensory, motor exams PSYCH: Normal mood, normal affect. SKIN: Warm, Dry, normal turgor, no rashes or lesions noted. Course - Re-evaluation Re-evalutation: CBC and comprehensive metabolic panel are unremarkable. Urinalysis with large leukocyte esterase but only 3 white blood cells. Wet prep reveals 3+ bacteria, otherwise unremarkable. GC and Chlamydia are negative. Patient will be treated for bacterial vaginosis. - Vital Signs Vital signs: Temp Pulse Resp BP Pulse Ox 98.3 F 79 16 135/80 H 97 02/19/18 20:17 02/19/18 20:17 02/19/18 20:17 02/19/18 20:17 02/19/18 20:17 - Laboratory Result Diagrams: 02/19/18 18:32 02/19/18 18:32 Laboratory results interpreted by me: 02/19/18 02/19/18 17:25 18:32 RBC 5.40 H MCV 76 L MCH 25.5 L RDW 16.5 H Urine Blood SMALL H Urine Urobilinogen 4.0 H Ur Leukocyte Esterase LARGE H Discharge - Discharge Clinical Impression: Bacterial vaginosis, Dysuria Condition: Stable Disposition: HOME, SELF-CARE Additional Instructions: Vaginosis, Bacterial Your exam shows you have bacterial vaginosis. This condition is due to an overgrowth of bacteria in the vagina. Symptoms may include vaginal itching or pain, a smelly discharge, and sometimes burning with urination. Normally this is not transmitted by sexual contact. Vaginosis can be treated with oral or topical antibiotics. Metronidazole ( Flagyl) pills are usually effective. Topical vaginal creams include Cleocin and Metro-Gel. You should avoid sexual contact until your symptoms are all better. Call the doctor if you develop pelvic pain, fever, or problems with urination, or if you don't improve as expected. Prescriptions: Metronidazole [Flagyl 500 mg Tablet] 500 mg PO BID #14 tablet Referrals: TOMA CONTRERAS CNM [Primary Care Provider] - Follow up as needed
[2018-02-19 20:06] LABS: CHLAM PCR NOT DETECTED (NOT DETECT); GON PCR NOT DETECTED (NOT DETECT)
[2018-02-19] MEDS ORDERED: DOXYCYCLINE HYCLATE 100 MG TABLET PO ONE (20:06)
[2018-02-19] MEDS ORDERED: METRONIDAZOLE 500 MG TABLET PO ONE (20:07)
[2018-02-19] MEDS ORDERED: AZITHROMYCIN 250 MG TABLET PO ONE (20:07)
[2018-02-19] MEDS ORDERED: LIDOCAINE 1% INJ-PF (10 MG/ML) 30 ML SDV INJ ONE (20:11)
[2018-02-19] MEDS ORDERED: CEFTRIAXONE INJ 250 MG VIAL IM ONE (20:11)
[2018-02-19 20:21] VITALS: BP 135/80
== END 2018-02-19 20:21 | disposition home or self-care (01) ==
LOC: ER 17:00
DX: N76.0 Acute vaginitis (principal); B96.89 Other specified bacterial agents as the cause of diseases classified elsewhere; R10.30 Lower abdominal pain, unspecified; M54.5 Low back pain; R30.0 Dysuria; J45.909 Unspecified asthma, uncomplicated; F17.200 Nicotine dependence, unspecified, uncomplicated; Z20.2 Contact with and (suspected) exposure to infections with a predominantly sexual mode of transmission; Z88.0 Allergy status to penicillin
CPT/HCPCS: 99284; 36415; 87086; 87210; 85025; 81025; 80053; 81001; 87491; 87591; J3490

== ENCOUNTER → 2018-04-04 | Outpatient (CLI) | payer MEDICAID ==
--- NOTE | 2018-04-04 11:09 | RADIOLOGY REPORT (SQ) ---
EXAM DESCRIPTION: CHEST PA/LATERAL COMPLETED DATE/TIME: 04/04/2018 10:55 am REASON FOR STUDY: COUGH COMPARISON: Two-view chest 09/19/2016 EXAM PARAMETERS: NUMBER OF VIEWS: two views TECHNIQUE: Digital Frontal and Lateral radiographic views of the chest acquired. RADIATION DOSE: NA LIMITATIONS: none FINDINGS: LUNGS AND PLEURA: No opacities, masses or pneumothorax. No pleural effusion. MEDIASTINUM AND HILAR STRUCTURES: No masses or contour abnormalities. HEART AND VASCULAR STRUCTURES: Heart normal size. No evidence for failure. BONES: No acute findings. HARDWARE: None in the chest. OTHER: No other significant finding. IMPRESSION: NO SIGNIFICANT RADIOGRAPHIC FINDING IN THE CHEST. TECHNICAL DOCUMENTATION: JOB ID: [id number] [employer]- All Rights Reserved Reading location - IP/workstation name: [email or web address]
== END ==
LOC: OD 10:45
PROVIDERS: ATTEND Nurse Practitioner Acute Care
DX: R05 Cough (principal)
CPT/HCPCS: 71046

== ENCOUNTER → 2018-08-19 | Outpatient (CLI) | payer MEDICAID ==
[2018-08-19 14:39] LABS: BACTERIA (WET MOUNT) 3+ BACTERIA SEEN; EPITHELIALS (WET MOUNT) 4+ EPITHELIALS SEEN; T.VAGINALIS (WET MOUNT) NO TRICHOMONAS SEEN; WBCS (WET MOUNT) FEW WBCS SEEN; YEAST (WET MOUNT) NO YEAST SEEN
[2018-08-19 16:08] LABS: CHLAM PCR NOT DETECTED (NOT DETECT); GON PCR NOT DETECTED (NOT DETECT)
== END ==
LOC: LAB 14:27
PROVIDERS: ATTEND Nurse Practitioner Acute Care
DX: R10.2 Pelvic and perineal pain (principal); R30.0 Dysuria
CPT/HCPCS: 87086; 87210; 87491; 87591

== ENCOUNTER 2019-01-30 12:09 | Emergency (ER) | payer MEDICAID ==
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
[2019-01-30 13:13] LABS: ADD MANUAL MICROSCOPIC YES; APPEARANCE,URINE SLIGHTLY-CLOUDY; BILIRUBIN,URINE NEGATIVE (NEGATIVE); COLOR,URINE AMBER; GLUCOSE, URINE NEGATIVE (NEGATIVE); KETONES,URINE 80 mg/dL (NEGATIVE); LEUKOCYTE ESTERASE,URINE MODERATE (NEGATIVE); NITRITE,URINE NEGATIVE (NEGATIVE); PROTEIN,URINE 30 mg/dL (NEGATIVE); URINE SPECIFIC GRAVITY 1.027
[2019-01-30 13:25] LABS: BACTERIA,URINE 3+ /HPF
[2019-01-30 13:26] LABS: BACTERIA (WET MOUNT) 4+ BACTERIA SEEN; EPITHELIALS (WET MOUNT) 4+ EPITHELIALS SEEN; RBCS (WET MOUNT) 1+ RBCS SEEN; T.VAGINALIS (WET MOUNT) NO TRICHOMONAS SEEN; WBCS (WET MOUNT) 2+ WBCS SEEN; YEAST (WET MOUNT) NO YEAST SEEN
[2019-01-30 13:29] LABS: ABSOLUTE EOSINOPHILS # (AUTO) 0.1 10^3/uL (0.0-0.6); ABSOLUTE LYMPHOCYTES (AUTO) 1.2 10^3/uL (0.5-4.7); ABSOLUTE MONOCYTES (AUTO) 0.4 10^3/uL (0.1-1.4); BASOPHILS % (AUTO) 0.4 % (0-2); EOSINOPHILS % (AUTO) 1.7 % (0-6); HEMATOCRIT 44.4 % (36.0-47.0); LYMPHOCYTES % (AUTO) 15.7 % (13-45); MEAN CORPUSCULAR HEMOGLOBIN 29.5 pg (27.0-33.4); MEAN CORPUSCULAR HGB CONC 33.8 g/dL (32.0-36.0); MEAN CORPUSCULAR VOLUME 87 fl (80-97); MONOCYTES % (AUTO) 5.5 % (3-13); PLATELET COUNT 148 10^3/uL (150-450); RED BLOOD COUNT 5.09 10^6/uL (3.72-5.28); RED CELL DISTRIBUTION WIDTH 14.3 % (11.5-14.0); SEGMENTED NEUTROPHILS % (AUTO) 76.7 % (42-78); TOTAL CELLS COUNTED % (AUTO) 100 %; WHITE BLOOD COUNT 7.9 10^3/uL (4.0-10.5)
[2019-01-30 13:36] LABS: ALBUMIN 3.8 g/dL (3.5-5.0); ALKALINE PHOSPHATASE 84 U/L (38-126); ANION GAP 9 (5-19); ASPARTATE AMINO TRANSFERASE 18 U/L (14-36); BILIRUBIN,DIRECT 0.1 mg/dL (0.0-0.4); BILIRUBIN,TOTAL 0.7 mg/dL (0.2-1.3); BLOOD UREA NITROGEN 10 mg/dL (7-20); CARBON DIOXIDE 25 mmol/L (22-30); CHLORIDE 105 mmol/L (98-107); GLUCOSE 85 mg/dL (75-110); POTASSIUM 3.7 mmol/L (3.6-5.0); TOTAL PROTEIN 6.1 g/dL (6.3-8.2)
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
[2019-01-30] MEDS ORDERED: DIPH/PERTUSS(ACELL)/TETANUS VAC/PF 0.5 ML SYR (>=10YO) IM ONE (14:48)
[2019-01-30] MEDS ORDERED: IBUPROFEN 800 MG TABLET PO ONE (14:49)
[2019-01-30] MEDS ORDERED: CYCLOBENZAPRINE HCL 10 MG TABLET PO ONE (14:49)
[2019-01-30] MEDS ORDERED: METHOCARBAMOL 500 MG TABLET PO ONE (14:50)
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
[2019-01-30 15:00] LABS: CHLAM PCR NOT DETECTED (NOT DETECT)
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
[2019-01-30 16:09] VITALS: BP 124/64
== END 2019-01-30 16:09 | disposition home or self-care (01) ==
LOC: ER 12:09
DX: N76.0 Acute vaginitis (principal); B96.89 Other specified bacterial agents as the cause of diseases classified elsewhere; S00.81XA Abrasion of other part of head, initial encounter; S30.0XXA Contusion of lower back and pelvis, initial encounter; S16.1XXA Strain of muscle, fascia and tendon at neck level, initial encounter; M54.2 Cervicalgia; M54.9 Dorsalgia, unspecified; N39.0 Urinary tract infection, site not specified; Y09 Assault by unspecified means; J45.909 Unspecified asthma, uncomplicated
CPT/HCPCS: 36415; 87210; 84703; 85025; 80053; 81001; 87491; 87591; 72110; 72070; 70486; 72125; 90715; J3490 ×2; 87086

== ENCOUNTER → 2019-03-18 | Outpatient (CLI) | payer SELFPAY ==
[2019-03-18 15:48] LABS: BACTERIA (WET MOUNT) 4+ BACTERIA SEEN; EPITHELIALS (WET MOUNT) 4+ EPITHELIALS SEEN; RBCS (WET MOUNT) NO RBCS SEEN; T.VAGINALIS (WET MOUNT) NO TRICHOMONAS SEEN; WBCS (WET MOUNT) 4+ WBCS SEEN; YEAST (WET MOUNT) NO YEAST SEEN
[2019-03-18 17:21] LABS: CHLAM PCR NOT DETECTED (NOT DETECT)
== END ==
LOC: LAB 15:41
PROVIDERS: ATTEND Nurse Practitioner Acute Care
DX: N89.8 Other specified noninflammatory disorders of vagina (principal); R30.0 Dysuria
CPT/HCPCS: 87086; 87210; 87491; 87591

== ENCOUNTER → 2020-04-15 | Outpatient (CLI) | payer MEDICAID ==
--- NOTE | 2020-04-15 15:02 | RADIOLOGY REPORT (SQ) ---
EXAM DESCRIPTION: LUMBAR SPINE COMPLETE IMAGES COMPLETED DATE/TIME: 04/15/2020 2:20 pm REASON FOR STUDY: LBP M54.5 LOW BACK PAIN COMPARISON: None. NUMBER OF VIEWS: Five views including obliques. TECHNIQUE: AP, lateral, oblique, and sacral radiographic images acquired of the lumbar spine. LIMITATIONS: None. FINDINGS: MINERALIZATION: Normal. SEGMENTATION: Normal. No transitional anatomy. ALIGNMENT: Normal. VERTEBRAE: Maintained height. No fracture or worrisome bone lesion. DISCS: Preserved height. No significant osteophytes or end plate irregularity. POSTERIOR ELEMENTS: Pedicles and facets are intact. No pars defect or posterior arch defects. HARDWARE: None in the spine. PARASPINAL SOFT TISSUES: Normal. PELVIS: Intact as visualized. No fractures or worrisome bone lesions. SI joints intact. OTHER: No other significant finding. IMPRESSION: NORMAL 5 VIEW LUMBAR SPINE. TECHNICAL DOCUMENTATION: JOB ID: [id number] 2010 [employer]- All Rights Reserved Reading location - IP/workstation name: [email or web address]
== END ==
LOC: OD 14:07
PROVIDERS: ATTEND Nurse Practitioner Family
DX: M54.5 Low back pain (principal)
CPT/HCPCS: 72110